=== PATIENT | male | born 1975 | race Caucasian/White ===

== ENCOUNTER 2017-09-19 14:58 | Emergency (ER) | payer OTHER, SELFPAY ==
[2017-09-19 15:09] VITALS: BP 123/78; PULSE 90; RESP 20; TEMP 37.1; O2SAT 95; BMI 33.3
[2017-09-19 15:21] LABS: UTC Influenza A Antigen Negative (Negative); UTC Influenza B Antigen Positive (Negative)
--- NOTE | 2017-09-19 15:23 | HMH.EDUTC ---
[facility] [place] Impression: Influenza Disposition: Home, Self-Care Condition on Discharge: Good Instructions: Influenza Additional Instructions: ? Start Tamiflu today if you are going to take it. Discussed risk and possible benefits. ? Lots of rest ? Increase Fluids water, Gatorade, powerade, pedialyte,if /toddler/child ? Alternate Tylenol and / or ibuprofen as discussed for fever, aches, chills x 24 hours without medication for symptoms ? Follow up IMMEDIATELY for new or worsening Symptoms OR no noticeable improvement over the next 48-72 hours, 911 for difficulty or breathing ? You or your child area contagious until no fever, aches, chills for 24 hours with medication for symptoms Prescriptions: Brompheniramine/Pseudoephed/Dm [Bromfed DM Cough Syrup 5mL] 10 ml PO Q4HP PRN #300 ml PRN Reason: Cough Oseltamivir Phosphate [Tamiflu 75mg Capsule] 75 mg PO BID #10 cap Referrals: Ankita Moore [Primary Care Provider] - Forms: Work/School Release Time of Disposition: 15:28 Medical Decision Making - Medical Records Medical records reviewed: Yes: I reviewed the patient's medical records. Vital Signs: 09/19/17 15:09 Temperature 98.8 F Temperature Source Temporal Artery Scan Pulse Rate [Right] 90 Respiratory Rate 20 Blood Pressure [Right Arm] 123/78 Blood Pressure Mean [Right Arm] 93 Blood Pressure Source [Right Arm] Automatic Cuff Blood Pressure Position [Right Arm] Sitting 02 Sat by Pulse Oximetry 95 Oxygen Delivery Method Room Air - Lab Data Lab Results 09/19/17 14:59: Influenza Type A Ag Negative, Influenza Type B Ag Positive A - Florentino Inquiry Pt receiving controlled substance: No Florentino was queried for this patient: No [facility] [place] - General Stated complaint: legs aching, fever Mode of Arrival: Ambulatory Source of Information: Spouse Limitations: No Limitations Description of Symptoms (Recalled from Triage Doc. by RN): FLU SYMPTOMS HEENT Symptoms (Recalled from RN notes): Yes Resp Symptoms (Recalled from RN notes): No Skin Symptoms (Recalled from RN notes): No MS Symptoms (Recalled from RN notes): No Functional Status (Recalled from RN notes): N - Related Data Previous Rx's Medication Instructions Recorded Brompheniramine/Pseudoephed/Dm 10 ml PO Q4HP PRN #300 ml 09/19/17 [Bromfed DM Cough Syrup 5mL] Oseltamivir Phosphate [Tamiflu 75 mg PO BID #10 cap 09/19/17 75mg Capsule] Allergies Allergy/AdvReac Type Severity Reaction Status Date / Time No Known Allergies Allergy Verified 09/19/17 15:13 - Worker's Comp Is this a Worker's Comp case?: No [facility] History - *Social History Smoking Status: Current every day smoker Tobacco Type: cigarettes Alcohol Intake: never - Psychiatric History Expresses thoughts of harming self/others: None Suicide Plan Description: No Plan ROS Obtained: Yes All systems reviewed & no additional complaints - Constitutional Constitutional: Reports body ache, Reports chills, Reports fever(s) - ENT Ears, Nose, Mouth, and Throat: Reports sore throat Physical Exam - General General appearance: alert, in no apparent distress - Expanded ENT Exam Comment: Throat red, irritated - Respiratory Respiratory exam: Present: normal lung sounds bilaterally. Absent: respiratory distress - Cardiovascular Cardiovascular exam: Present: regular rate, normal rhythm. Absent: JVD - Abdominal Exam Abdominal exam: Present: soft, normal bowel sounds. Absent: distention, tenderness, guarding - Neurological Exam Neurological exam: Present: alert, oriented X3
--- NOTE | 2017-09-19 15:28 | ED_ITS ---
[facility] [place] Clinical Impression: Influenza Disposition: Home, Self-Care Condition on Discharge: Good Instructions: Influenza Additional Instructions: ? Start Tamiflu today if you are going to take it. Discussed risk and possible benefits. ? Lots of rest ? Increase Fluids water, Gatorade, powerade, pedialyte,if /toddler/child ? Alternate Tylenol and / or ibuprofen as discussed for fever, aches, chills x 24 hours without medication for symptoms ? Follow up IMMEDIATELY for new or worsening Symptoms OR no noticeable improvement over the next 48-72 hours, 911 for difficulty or breathing ? You or your child area contagious until no fever, aches, chills for 24 hours with medication for symptoms Prescriptions: Brompheniramine/Pseudoephed/Dm [Bromfed DM Cough Syrup 5mL] 10 ml PO Q4HP PRN # 300 ml PRN Reason: Cough Oseltamivir Phosphate [Tamiflu 75mg Capsule] 75 mg PO BID #10 cap Referrals: Ankita Moore [Primary Care Provider] - Forms: Work/School Release Time of Disposition: 15:28 Medical Decision Making - Medical Records Medical records reviewed: Yes: I reviewed the patient's medical records. Vital Signs: 09/19/17 15:09 Temperature 98.8 F Temperature Source Temporal Artery Scan Pulse Rate [Right] 90 Respiratory Rate 20 Blood Pressure [Right Arm] 123/78 Blood Pressure Mean [Right Arm] 93 Blood Pressure Source [Right Arm] Automatic Cuff Blood Pressure Position [Right Arm] Sitting 02 Sat by Pulse Oximetry 95 Oxygen Delivery Method Room Air - Lab Data Lab Results 09/19/17 14:59: Influenza Type A Ag Negative, Influenza Type B Ag Positive A - Florentino Inquiry Pt receiving controlled substance: No Florentino was queried for this patient: No [facility] [place] HPI - General Stated complaint: legs aching, fever Mode of Arrival: Ambulatory Source of Information: Spouse Limitations: No Limitations Description of Symptoms (Recalled from Triage Doc. by RN): FLU SYMPTOMS HEENT Symptoms (Recalled from RN notes): Yes Resp Symptoms (Recalled from RN notes): No Skin Symptoms (Recalled from RN notes): No MS Symptoms (Recalled from RN notes): No Functional Status (Recalled from RN notes): N - Related Data Previous Rx's Medication Instructions Recorded Brompheniramine/Pseudoephed/Dm 10 ml PO Q4HP PRN #300 ml 09/19/17 [Bromfed DM Cough Syrup 5mL] Oseltamivir Phosphate [Tamiflu 75 mg PO BID #10 cap 09/19/17 75mg Capsule] Allergies Allergy/AdvReac Type Severity Reaction Status Date / Time No Known Allergies Allergy Verified 09/19/17 15:13 - Worker's Comp Is this a Worker's Comp case?: No [facility] History - *Social History Smoking Status: Current every day smoker Tobacco Type: cigarettes Alcohol Intake: never - Psychiatric History Expresses thoughts of harming self/others: None Suicide Plan Description: No Plan ROS Obtained: Yes All systems reviewed & no additional complaints - Constitutional Constitutional: Reports body ache, Reports chills, Reports fever(s) - ENT Ears, Nose, Mouth, and Throat: Reports sore throat Physical Exam - General General appearance: alert, in no apparent distress - Expanded ENT Exam Comment: Throat red, irritated - Respiratory Respiratory exam: Present: normal lung sounds bila
[2017-09-19 15:29] VITALS: BP 138/77; PULSE 89; RESP 20; TEMP 36.6; O2SAT 99
== END 2017-09-19 15:30 | disposition home or self-care (01) ==
PROVIDERS: Emergency Provider Nurse Practitioner; Family Provider Physician Assistant; PCP Physician Assistant
DX: J11.1 Influenza due to unidentified influenza virus with other respiratory manifestations (principal); F17.210 Nicotine dependence, cigarettes, uncomplicated
CPT/HCPCS: 87804; 99202

== ENCOUNTER 2020-03-18 12:26 | Emergency (ER) | payer OTHER, SELFPAY ==
[2020-03-18 12:28] VITALS: BP 135/75; PULSE 84; RESP 17; TEMP 37.2; O2SAT 97; BMI 34.9
--- NOTE | 2020-03-18 12:38 | CT_ITS ---
PROCEDURE: CT HEAD/BRAIN WO CON CLINICAL INDICATION: Intermittent left arm weakness for days COMPARISON: No exams were available for comparison TECHNIQUE: Axial images obtained. All CT scans at the facility use one or more dose reduction, viz: automated exposure control, ma/kV adjustment per patient size (including targeted exams where dose is matched to indication, i.e. head), or iterative reconstruction technique. FINDINGS: No midline shift, mass effect, intracranial hemorrhage, hydrocephalus, or extra-axial fluid collection is evident. The calvarium has an unremarkable appearance. No mastoid effusion. No sinus air-fluid level. IMPRESSION: No acute intracranial finding Dictated by: Sincere Hope MD 03/18/2020 13:01 Sincere Hope MD in [place] 03/18/2020 13:01
--- NOTE | 2020-03-18 12:40 | HMH.EDWEAK ---
ED Disposition Clinical Impression: Paresthesia, Lightheaded Disposition: Home, Self-Care Condition on Discharge: Good Instructions: DI for Transient Ischemic Attack, DI for Dehydration -- Adult Referrals: Sabine Magallon APRN [Primary Care Provider] - 3 days - Critical Care Critical Care Time: No Attestation: On 03/18/20, the high probability of a clinically significant, sudden or life threatening deterioration of the following system(s) required my full and direct attention, intervention and personal management. The time I documented below is in addition to time spent performing reported procedures but includes the following listed in this critical care notation. Medical Decision Making - Medical Records Medical records reviewed: Yes: I reviewed the patient's medical records. - Florentino Inquiry Pt receiving controlled substance: No Vital Signs: 03/18/20 12:28 03/18/20 13:19 Temperature 99 F Temperature Source Oral Pulse Rate [Right] 84 75 Respiratory Rate 17 Blood Pressure [Right Arm] 135/75 142/68 H Blood Pressure Mean [Right Arm] 95 92 Blood Pressure Source [Right Arm] Automatic Cuff Blood Pressure Position [Right Arm] Sitting 02 Sat by Pulse Oximetry 97 97 Oxygen Delivery Method Room Air - Lab Data Lab results reviewed: Yes: I reviewed the patient's lab results. Lab Results 03/18/20 12:55: WBC 4.9, RBC 4.68, Hgb 14.6, Hct 43.6, MCV 93.1, MCH 31.2, MCHC 33.5, RDW 12.8, Plt Count 249, MPV 7.6, Neut % (Auto) 61.7, Lymph % (Auto) 27.2, Fajardo % (Auto) 8.0, Eos % (Auto) 2.7, Baso % (Auto) 0.4, Neut # (Auto) 3.0, Lymph # (Auto) 1.3, Fajardo # (Auto) 0.4, Eos # (Auto) 0.1, Baso # (Auto) 0.0 03/18/20 12:55: Sodium 139, Potassium 4.3, Chloride 102, Carbon Dioxide 29, Anion Gap 12.3, BUN 19, Creatinine 1.10, Estimated Creat Clear 143, Estimated GFR 72, Est GFR ( Amer) 87, Glucose 103 H, Calcium 9.3, Troponin I < 0.01 03/18/20 12:55: Urine Color Yellow, Urine Appearance Clear, Urine pH 7.0, Ur Specific [place] 1.010, Urine Protein Negative, Urine Glucose (UA) Negative, Urine Ketones Negative, Urine Blood Negative, Urine Nitrate Negative, Urine Bilirubin Negative, Urine Urobilinogen 0.2, Ur Leukocyte Esterase Negative, Urine WBC Occasional, Urine Bacteria Trace 03/18/20 12:55: Urine Opiates Screen Negative, Urine Methadone Screen Negative, Ur Barbituates Screen Negative, Ur Phencyclidine Scrn Negative, Ur Amphetamines Screen Negative, U Benzodiazepines Scrn Negative, Urine Cocaine Screen Negative, U Marijuana (THC) Screen Negative Result diagrams: 03/18/20 12:55 03/18/20 12:55 Orders (Tests/Meds): ORDERS Category Date Time Status Troponin I Q3H Lab 03/18/20 15:45 Ordered Troponin I Q3H Lab 03/18/20 18:45 Ordered ECG Request by /Luisana Stat Y 03/18/20 12:38 Ordered - CT Data CT Scan: Head Time Received: 13:[address] Reviewed: Yes: I have reviewed the patient's CT results Preliminary Findings: Normal/NAD Medical Decision Narrative: Is asymptomatic here. CT head negative. Labs with no significant metabolic derangement, anemia. No UTI, drug screen negative. Troponin negative and EKG with no signs of acute ischemia. Patient describes more of a temporal nature of his symptoms at night and after further discussion he tells me that his blood pressure is between 1 30-1 50 systolic in the evenings and he is concerned that he may need blood pressure medicine at night. He also admits he is not drinking much water during the day and works outside all day, so dehydration could be a component of his lightheadedness, subsequently causing his subjective weakness. However, certainly TIA remains a concern as well. I have discussed all of this with both the patient and his primary care provider and both would prefer an outpatient work-up for this though I have offered admission. PCP will increase his dose of lisinopril to 10 mg twice daily instead of once daily. I have informed the patient of this. He will
--- NOTE | 2020-03-18 12:43 | ECG_ITS ---
APPROVED REPORT Exam: Resting ECG HR:77 bpm ECG Measurements Heart Rate 77 AXES ND 148 P 48 QRSd 92 QRS 47 QT 364 T 30 QTc 411 <Conclusion> Normal sinus rhythm Normal ECG Electronically signed by : Serg Fair, 03/20/2020 17:33:07
--- NOTE | 2020-03-18 12:55 | PC.NURSE ---
Pt to rad.
[2020-03-18 13:00] LABS: Appearance,Urine CLEAR (Clear); Bilirubin,Urine Negative (Negative); Blood, Urine Negative (Negative); Color,Urine YELLOW (Yellow); Glucose,Urine (UA) Negative (Negative); Ketones,Urine Negative (Negative); Leukocyte Esterase,Urine Negative (Negative); Microscopic, Urine URINE MICROSCOPIC (MICROSCOPIC); Nitrate,Urine Negative (Negative); Protein,Urine Negative (Negative); Urobilinogen,Urine 0.2 EU/dl (0.2)
[2020-03-18 13:05] LABS: Chloride 102 mmol/L (98-107); Potassium 4.3 mmoL/L (3.5-5.1); Sodium 139 mmol/L (136-145)
[2020-03-18 13:08] LABS: Anion Gap 12.3 mEq/L (5-15); Basophils % 0.4 % (0.1-2.0); Blood Urea Nitrogen 19 mg/dl (9-20); Calcium 9.3 mg/dl (8.4-10.2); Carbon Dioxide 29 mmol/L (22.0-30.0); Creatinine Clearance Estimated 143 mL/min (50-200); Eosinophils # 0.1 K/mm3 (0.0-0.4); Eosinophils % 2.7 % (0.1-12.0); Estimated Glomerular Filt Rate 72 ml/min (>60); GFR (African American) 87 ML/MIN (>60); Glucose 103 mg/dl (74-100); Hematocrit 43.6 % (42.0-52.0); Hemoglobin 14.6 g/dL (14.1-18.0); Lymphocytes # 1.3 K/mm3 (0.7-4.5); Lymphocytes % 27.2 % (10-50); Mean Corpuscular HGB Conc 33.5 g/dL (31.8-35.4); Mean Corpuscular Hemoglobin 31.2 pg (27.0-31.2); Mean Corpuscular Volume 93.1 fl (80-94); Mean Platelet Volume 7.6 fl (7.4-10.4); Monocytes # 0.4 K/mm3 (0.1-1.0); Neutrophils % 61.7 % (37.0-80.0); Platelet Count 249 K/mm3 (142-424); Red Blood Count 4.68 M/mm3 (4.60-6.20); Red Cell Distribution Width 12.8 % (11.5-17.5); White Blood Count 4.9 K/mm3 (4.8-10.8)
[2020-03-18 13:14] LABS: Amphetamine/Metha Screen,Urine Negative ng/ml (<1000); Bacteria,Urine Trace /lpf; Benzodiazepines Screen,Urine Negative ng/ml (<200); WBC,Urine Occasional #/hpf (0-3)
[2020-03-18 13:15] LABS: Barbiturates Screen,Urine Negative ng/ml (<200)
[2020-03-18 13:16] LABS: Cannabinoid Screen,Urine Negative ng/ml (<50); Cocaine Screen,Urine Negative ng/ml (<300)
[2020-03-18 13:17] LABS: Methadone Screen,Urine Negative ng/ml (<300)
[2020-03-18 13:18] LABS: Opiate Screen,Urine Negative ng/ml (<300); Phencyclidine Screen,Urine Negative ng/ml (<25)
[2020-03-18 13:19] VITALS: BP 142/68; PULSE 75; O2SAT 97
[2020-03-18 13:27] LABS: Troponin I < 0.01 ng/ml (0.00-0.034)
[2020-03-18 13:46] VITALS: BP 142/68; PULSE 75; RESP 17; TEMP 37.2; O2SAT 97
== END 2020-03-18 13:51 | disposition home or self-care (01) ==
PROVIDERS: Emergency Provider Emergency Medicine; PCP Nurse Practitioner Family
DX: R42 Dizziness and giddiness (principal); R20.2 Paresthesia of skin; I10 Essential (primary) hypertension; E78.5 Hyperlipidemia, unspecified; Z79.899 Other long term (current) drug therapy
CPT/HCPCS: 70450; 80048; 80305; 81001; 84484; 85025; 93005; 99284

== ENCOUNTER → 2020-03-22 17:00 | Outpatient (CLI) | payer OTHER, SELFPAY | PROVIDERS: PCP Nurse Practitioner Family; Visit Provider Specialist | DX: R55 Syncope and collapse (principal); G54.9 Nerve root and plexus disorder, unspecified; I10 Essential (primary) hypertension; E78.5 Hyperlipidemia, unspecified; R06.83 Snoring; G47.33 Obstructive sleep apnea (adult) (pediatric) | CPT/HCPCS: 93225; 93226; 95806 ==

== ENCOUNTER → 2020-03-26 10:43 | Outpatient (CLI) | payer OTHER, SELFPAY ==
--- NOTE | 2020-03-26 10:44 | MR_ITS ---
PROCEDURE: MR HEAD/BRAIN WO CON CLINICAL INDICATION: tia X2wks episode dizzy and lightheadedness. Prior ct 03-18-20 COMPARISON: CT CT HEAD/BRAIN WO CON from 03/18/2020 TECHNIQUE: Routine multiplanar multi echo sequences are performed without gadolinium enhancement. FINDINGS: No midline shift, mass effect, intracranial hemorrhage, or hydrocephalus. No evidence of acute infarction. The cerebellopontine angles, cerebellum, and brainstem have an unremarkable appearance. The pituitary, optic chiasm, corpus callosum, and craniocervical junction have an unremarkable appearance. Unremarkable white matter signal intensity. No mastoid effusion or sinus air-fluid level. IMPRESSION: Negative MRI of the brain without contrast, no acute finding. Dictated by: Sincere Hope MD 03/27/2020 12:35 Sincere Hope MD in [place] 03/27/2020 12:35
--- NOTE | 2020-03-26 11:49 | CA_ITS ---
APPROVED REPORT EXAM: Comprehensive 2D, Doppler, and color-flow Echocardiogram Compensator Worker: Tracee Fish RVT Ht: 6 ft 1 in Wt: 259lbs BSA: 2.40 BP: 123/69 mmHg Indications: TIA,NEAR SYNCOPE,HTN,HLD,EX SMOKER 2D Dimensions LVOT 2.51 cm (M/F) 1.5-2.5 M-Mode Dimensions RVDd 3.57 cm (0.9-2.6) LVDd 5.14 cm (3.5-5.7) LVDs 2.93 cm (3.5-5.7) IVSd 1.19 cm (0.6-1.1) PWd 0.76 cm (0.6-1.1) EF (Teich) 73.80% FS 43.00% EDV (Teich) 126.10 mL ESV (Teich) 33.00 mL LV Diastology E/A Ratio 1.21 Mitral Valve MV A Velocity 63.00 (40-130 cm/s) Left Ventricle Left atrium is mildly enlarged, left ventricle is normal size, there is mild concentric left ventricular hypertrophy, visually estimated ejection fraction 55% with no regional wall motion abnormality. Grade 1 diastolic dysfunction seen without tissue Doppler evidence of raise left atrial pressure. Right Ventricle Right atrium and right ventricle are mildly enlarged with normal contractility. Aortic Valve Aortic valve is minimally thickened and fibrosed, there is no aortic stenosis or aortic insufficiency. Mitral Valve Mitral valve is grossly normal, there is mild mitral regurgitation. Tricuspid Valve Tricuspid valve grossly normal, there is mild tricuspid regurgitation, tricuspid regurgitation jet velocity is inadequate for calculation of the right ventricular systolic pressure. Pulmonic Valve Pulmonic valve is poorly visualized. Great Vessels Aortic root is normal size. Pericardium No significant pericardial effusion noted. Conclusion 1. Mild biatrial enlargement, normal left ventricular size, mild concentric left ventricular hypertrophy, visually estimated ejection fraction 55% with no regional wall motion abnormality, grade 1 diastolic dysfunction seen without tissue Doppler evidence of raise left atrial pressure. 2. Mildly enlarged right ventricle with normal contractility. 3. Mild mitral and tricuspid regurgitation. 4. No significant pericardial effusion noted. Electronically signed by : Michael Cifuentes, 03/26/2020 21:03:59
--- NOTE | 2020-03-26 11:49 | CA_ITS ---
APPROVED REPORT Alterations Expert: Tracee Fish RVT Laterality: Bilateral Study Quality: Good Indications: TIA,NEAR SYNCOPE,HTN,HLD,EX SMOKER Risk Factors Hypertension: Hyperlipidemia Smoking Doppler Spectral Velocity Analysis ECA (R) 151.30/12.00 cm/s ECA (L) 123.60/18.00 cm/s dICA (R) 92.00/39.60 cm/s dICA (L) 64.40/25.50 cm/s Pricilla (R) 77.40/27.90 cm/s Pricilla (L) 66.70/26.20 cm/s pICA (R) 64.60/19.80 cm/s pICA (L) 67.20/18.10 cm/s dCCA (R) 105.30/18.90 cm/s dCCA (L) 80.10/18.90 cm/s pCCA (R) 112.50/15.50 cm/s pCCA (L) 114.60/18.00 cm/s Vert (R) 59.90/12.00 cm/s Vert (L) 49.40/12.70 cm/s ICA/CCA 0.87 ICA/CCA 0.84 Findings Study suggests no evidence of stenosis in the right internal cartoid artery. Study suggests less than 20% stenosis of the left internal cartoid artery. Antegrade flow seen bilateral vertebral arteries. Conclusion Study suggests no evidence of stenosis in the right internal cartoid artery. Study suggests less than 20% stenosis of the left internal cartoid artery. Antegrade flow seen bilateral vertebral arteries. Electronically signed by : Sincere Hope MD 03/26/2020 18:04:46
== END ==
PROVIDERS: PCP Nurse Practitioner Family; Visit Provider Specialist
DX: R55 Syncope and collapse (principal); G45.9 Transient cerebral ischemic attack, unspecified; R20.0 Anesthesia of skin; I10 Essential (primary) hypertension; R06.83 Snoring; E78.5 Hyperlipidemia, unspecified
CPT/HCPCS: 70551; 93306; 93880

== ENCOUNTER 2020-06-03 12:43 | Emergency (ER) | payer OTHER, SELFPAY ==
[2020-06-03 12:50] VITALS: BP 143/77; PULSE 98; RESP 16; TEMP 37.4; O2SAT 96; BMI 34.2
--- NOTE | 2020-06-03 13:18 | HMH.EDUTC ---
[facility] [place] Dis[place] Clinical Impression: Piriformis syndrome of left side Disposition: Home, Self-Care Condition on Discharge: Good Instructions: DI for Back Pain With Sciatica Additional Instructions: Rest the extremity, Take the steroids that if prescribed. Don't start them until tomorrow since you had the shot here. Follow up with Dr. Honr (orthopedics) if you continue to have these symptoms after 48 to 72 hours after starting the medications. I put in a referral but you need to call her office and schedule an appointment. Follow up with your regular doctor. GO TO THE ER FOR ANY WORSENING SYMPTOMS Prescriptions: methylPREDNISolone [Medrol] 4 mg PO DIRECTED 6 Days #21 tab.ds.pk Transmission Status: Received by [facility] Referrals: Sabine Magallon APRN [Primary Care Provider] - Lonnie Horn MD [Staff Physician] - Forms: Work/School Release Time of Disposition: 13:22 Medical Decision Making - Medical Records Medical records reviewed: No: I reviewed the patient's medical records. - Florentino Inquiry Pt receiving controlled substance: No Vital Signs: 06/03/20 12:50 06/03/20 13:28 Temperature 99.4 F 99.4 F Temperature Source Oral Pulse Rate 98 H Pulse Rate [Right Brachial] 98 H Respiratory Rate 16 16 Blood Pressure 143/77 H Blood Pressure [Right Arm] 143/77 H Blood Pressure Mean [Right Arm] 99 Blood Pressure Source [Right Arm] Automatic Cuff Blood Pressure Position [Right Arm] Sitting 02 Sat by Pulse Oximetry 96 Oxygen Delivery Method Room Air Orders (Tests/Meds): ED MEDICATIONS Discontinued Medications Generic Name Dose Route Start Last Admin Trade Name Mary PRN Reason Stop Dose Admin Methylprednisolone Sodium Succinate 125 mg 06/03/20 13:17 06/03/20 13:27 Methylprednisolone Sod Succ 125mg Vial IM 06/03/20 13:18 125 mg ONCE ONE Administration [facility] [place] HPI - General Stated complaint: numbness in left leg Time Seen by Provider: 06/03/20 12:55 Mode of Arrival: Ambulatory Source of Information: Patient Limitations: No Limitations Description of Symptoms (Recalled from Triage Doc. by RN): PATIENT C/O CONSTANT NUMBNESS TO LEFT THIGH AND PAIN THAT RADIATES FROM LEFT HIP THROUGH MID THIGH X 2 WEEKS HEENT Symptoms (Recalled from RN notes): No Resp Symptoms (Recalled from RN notes): No Skin Symptoms (Recalled from RN notes): No MS Symptoms (Recalled from RN notes): Yes Functional Status (Recalled from RN notes): WNL - History of Present Illness Provider Complaint: He states that for the past week or so he has pain that radiated down from his left hip to just above his knee. Over the past 2 days he has developed a numb and tingling area on his left leg at the lateral area just above his knee. He denies any injury. He does have a history of low back pain. - Related Data Home Medications Medication Instructions Recorded Confirmed Atorvastatin Calcium [Atorvastatin 10 mg PO DAILY 10/08/18 06/03/20 10mg Tab] Fenofibrate [Tricor 54mg tablet] 54 mg PO DAILY 10/08/18 06/03/20 Levothyroxine Sodium 50 mcg PO DAILY 10/08/18 06/03/20 [Levothyroxine 50mcg (0.05mg) Tab] lisinopril 10 mg tablet 10 mg PO BID tab 03/19/20 06/03/20 aspirin 81 mg tablet,delayed 81 mg PO DAILY 05/22/20 06/03/20 release mecobalamin (vitamin B12) 1,000 1,000 mcg PO DAILY 05/22/20 06/03/20 mcg chewable tablet Previous Rx's Medication Instructions Recorded methylPREDNISolone [Medrol] 4 mg PO DIRECTED 6 Days #21 06/03/20 tab.ds.pk Allergies Allergy/AdvReac Type Severity Reaction Status Date / Time No Known Allergies Allergy Verified 05/22/20 15:56 - Worker's Comp Is this a Worker's Comp case?: No [facility] History - Hepatitis A Screen Drug use history?: No High risk sexual behaviors?: No History of sexually transmitted infection?: No Currently employed?: No Childcare worker?: No Do you have indoor plumbing?: Yes Do you have electricity
[2020-06-03 13:28] VITALS: BP 143/77; PULSE 98; RESP 16; TEMP 37.4; O2SAT 96
== END 2020-06-03 13:42 | disposition home or self-care (01) ==
PROVIDERS: Emergency Provider Nurse Practitioner Family; PCP Nurse Practitioner Family
DX: G57.02 Lesion of sciatic nerve, left lower limb (principal); I10 Essential (primary) hypertension; E78.5 Hyperlipidemia, unspecified; E03.9 Hypothyroidism, unspecified; Z79.899 Other long term (current) drug therapy
CPT/HCPCS: 96372; 99201

== ENCOUNTER 2021-01-14 01:40 | Emergency (ER) | payer OTHER, SELFPAY ==
--- NOTE | 2021-01-14 01:46 | ECG_ITS ---
APPROVED REPORT Exam: Resting ECG HR:76 bpm ECG Measurements Heart Rate 76 AXES OK 154 P 55 QRSd 98 QRS 65 QT 378 T 40 QTc 425 Conclusion Normal sinus rhythm Normal ECG Electronically signed by : Serg Fair, 01/14/2021 08:16:54
[2021-01-14 01:49] VITALS: BP 134/78; PULSE 80; RESP 16; TEMP 36.9; O2SAT 99; BMI 35.3
--- NOTE | 2021-01-14 02:07 | XR_ITS ---
PROCEDURE INFORMATION: Exam: XR Chest Exam date and time: 01/14/2021 2:07 AM Age: 45 years old Clinical indication: Pain; Left-sided; Patient HX: Woke up to his arm tingling, feeling has mostly went away. ; Additional info: Left arm numbness TECHNIQUE: Imaging protocol: XR of the chest. Views: 2 views. COMPARISON: CR CXR2V XR chest 2V 10/08/2018 11:12 PM FINDINGS: Tubes, catheters and devices: Multiple overlying cardiac leads are present. Lungs: Unremarkable. No consolidation. Pleural spaces: Unremarkable. No pleural effusion. No pneumothorax. Heart/Mediastinum: Unremarkable. No cardiomegaly. Bones/joints: Unremarkable. IMPRESSION: No acute findings.
--- NOTE | 2021-01-14 02:07 | XR_ITS ---
PROCEDURE INFORMATION: Exam: XR Left Shoulder Exam date and time: 01/14/2021 2:07 AM Age: 45 years old Clinical indication: Numbness; Arm, upper; Left; Patient HX: Woke up to his arm tingling, feeling has mostly went away. ; Additional info: Left arm numbness TECHNIQUE: Imaging protocol: XR Left shoulder. Views: 2 or more views. COMPARISON: No relevant prior studies available. FINDINGS: Bones/joints: Normal. Soft tissues: Normal. IMPRESSION: No acute findings.
[2021-01-14 02:17] LABS: Basophils % 0.8 % (0.1-2.0); Eosinophils # 0.2 K/mm3 (0.0-0.4); Eosinophils % 2.9 % (0.1-12.0); Hematocrit 43.7 % (42.0-52.0); Hemoglobin 14.5 g/dL (14.1-18.0); Lymphocytes # 1.7 K/mm3 (0.7-4.5); Lymphocytes % 31.3 % (10-50); Mean Corpuscular HGB Conc 33.1 g/dL (31.8-35.4); Mean Corpuscular Hemoglobin 29.5 pg (27.0-31.2); Mean Corpuscular Volume 89.2 fl (80-94); Mean Platelet Volume 7.3 fl (7.4-10.4); Monocytes # 0.5 K/mm3 (0.1-1.0); Monocytes % 8.7 % (1.7-9.3); Neutrophils # 3.1 K/mm3 (1.8-7.8); Neutrophils % 56.4 % (37.0-80.0); Platelet Count 251 K/mm3 (142-424); White Blood Count 5.6 K/mm3 (4.8-10.8)
[2021-01-14 02:20] LABS: Alanine Aminotransferase 46 U/L (12-78); Albumin Level 4.9 g/dl (3.5-5.0); Alkaline Phosphatase 50 U/L (38-126); Aspartate Amino Transferase 39 U/L (17-59); Bilirubin,Total 0.6 mg/dl (0.2-1.3); Blood Urea Nitrogen 18 mg/dl (9-20); Calcium 9.2 mg/dl (8.4-10.2); Carbon Dioxide 28 mmol/L (22.0-30.0); Chloride 103 mmol/L (98-107); Creatinine Clearance Estimated 121 mL/min (50-200); Estimated Glomerular Filt Rate 59 ml/min (>60); GFR (African American) 72 ML/MIN (>60); Globulin 2.5 g/dL (1.3-3.2); Glucose 108 mg/dl (74-100); Sodium 138 mmol/L (136-145); Total Protein,Serum 7.4 g/dl (6.3-8.2)
[2021-01-14 02:25] LABS: C-Reactive Protein 1.2 mg/L (0-4)
[2021-01-14 02:30] VITALS: BP 116/72; PULSE 80; O2SAT 98
[2021-01-14 02:39] LABS: Procalcitonin 0.053 ng/mL (0.0-2.0); Troponin I < 0.01 ng/ml (0.00-0.034)
[2021-01-14 02:48] LABS: Erythrocyte Sedimentation Rate 7 mm/hr (0-15)
[2021-01-14 03:00] VITALS: BP 140/69; PULSE 76; RESP 18; O2SAT 98
--- NOTE | 2021-01-14 03:37 | HMH.EDUPEXT ---
ED Disposition Clinical Impression: Left upper arm pain Disposition: Home, Self-Care Condition on Discharge: Good Instructions: DI for Acute Pain -- Adult Additional Instructions: see pcp for follow up Referrals: Sabine Magallon APRN [Primary Care Provider] - - Critical Care Critical Care Time: No Attestation: On 01/14/21, the high probability of a clinically significant, sudden or life threatening deterioration of the following system(s) required my full and direct attention, intervention and personal management. The time I documented below is in addition to time spent performing reported procedures but includes the following listed in this critical care notation. Medical Decision Making - Medical Records Medical records reviewed: Yes: I reviewed the patient's medical records. - Florentino Inquiry Pt receiving controlled substance: No Vital Signs: 01/14/21 01:49 Temperature 98.4 F Temperature Source Oral Pulse Rate [Left Radial] 80 Respiratory Rate 16 Blood Pressure [Right Arm] 134/78 Blood Pressure Mean [Right Arm] 96 Blood Pressure Source [Right Arm] Automatic Cuff Blood Pressure Position [Right Arm] Sitting 02 Sat by Pulse Oximetry 99 Oxygen Delivery Method Room Air - Lab Data Lab results reviewed: Yes: I reviewed the patient's lab results. Lab Results 01/14/21 01:56: WBC 5.6, RBC 4.90, Hgb 14.5, Hct 43.7, MCV 89.2, MCH 29.5, MCHC 33.1, RDW 13.0, Plt Count 251, MPV 7.3 L, Neut % (Auto) 56.4, Lymph % (Auto) 31.3, [place] % (Auto) 8.7, Eos % (Auto) 2.9, Baso % (Auto) 0.8, Neut # (Auto) 3.1, Lymph # (Auto) 1.7, [place] # (Auto) 0.5, Eos # (Auto) 0.2, Baso # (Auto) 0.0, ESR 7 01/14/21 01:56: Sodium 138, Potassium 4.0, Chloride 103, Carbon Dioxide 28, Anion Gap 11.0, BUN 18, Creatinine 1.30 H, Estimated Creat Clear 121, Estimated GFR 59, Est GFR ( Amer) 72, Glucose 108 H, Calcium 9.2, Total Bilirubin 0.6, AST 39, ALT 46, Alkaline Phosphatase 50, Troponin I < 0.01, C-Reactive Protein 1.2, Total Protein 7.4, Albumin 4.9, Globulin 2.5, Albumin/Globulin Ratio 2.0 H, Procalcitonin 0.053 01/14/21 03:56: Troponin I < 0.01 Result diagrams: 01/14/21 01:56 01/14/21 01:56 Orders (Tests/Meds): ED MEDICATIONS Generic Name Dose Route Start Last Admin Trade Name Freq PRN Reason Stop Dose Admin Sodium Chloride 1,000 mls @ 999 mls/hr 01/14/21 02:15 01/14/21 02:13 Sod Chlor 0.9% 1000ml Bag IV 01/14/21 03:15 999 mls/hr .Q1H1M JULITO Administration Discontinued Medications Generic Name Dose Route Start Last Admin Trade Name Freq PRN Reason Stop Dose Admin Ketorolac Tromethamine 30 mg 01/14/21 02:07 01/14/21 02:13 Ketorolac 30mg/Ml Vial IV 01/14/21 02:08 30 mg ONCE ONE Administration Methylprednisolone Sodium Succinate 125 mg 01/14/21 02:07 01/14/21 02:13 Methylprednisolone Sod Succ 125mg Vial IV 01/14/21 02:08 125 mg ONCE ONE Administration ORDERS Category Date Time Status Troponin I Q3H Lab 01/14/21 08:15 Ordered - Radiology Data #1 Image(s): Chest, Shoulder Image Reviewed: Yes I reviewed the patient's radiology image Preliminary Findings: Normal/NAD - ECG Data Tracing #1 Normal Sinus Rhythm: Yes Ischemic changes: non-specific ST-T wave changes Medical Decision Narrative: pt with no acute changes with labs and pt improved but may represent atypical angina Upper Extremity HPI - General Chief Complaint: Extremity Problem,Nontraumatic Stated Complaint: left arm feels numb Time Seen by Provider: 01/14/21 02:00 Mode of Arrival: Ambulatory Source of Information: Patient, Spouse, Medical Record Limitations: No Limitations Description of Symptoms (Recalled from ER Triage Doc. by RN): Pt staes he was laying in bed tonight and his left arm fell asleep, symptoms have mostly resolved by time of arrival, but pt wants to be checked out. Pt has normal Cap refill and palpable radial pulses. - History of Present Illness HPI narrative: lt shoulde
[2021-01-14 04:00] VITALS: BP 122/66; PULSE 74; O2SAT 100
[2021-01-14 04:26] LABS: Troponin I < 0.01 ng/ml (0.00-0.034)
[2021-01-14 04:48] VITALS: BP 140/76; PULSE 78; RESP 16; TEMP 36.7; O2SAT 96
== END 2021-01-14 04:52 | disposition home or self-care (01) ==
PROVIDERS: Emergency Provider Emergency Medicine; PCP Nurse Practitioner Family
DX: M79.622 Pain in left upper arm (principal); R20.2 Paresthesia of skin; E78.5 Hyperlipidemia, unspecified; I10 Essential (primary) hypertension
CPT/HCPCS: 71046; 73030; 80053; 84145; 84484; 85025; 85651; 86140; 93005; 96365; 96375; 99283

== ENCOUNTER 2021-03-30 09:14 | Emergency (ER) | payer OTHER, SELFPAY ==
[2021-03-30 09:41] VITALS: BP 114/69; PULSE 70; RESP 12; TEMP 36.8; O2SAT 97; BMI 31.4
--- NOTE | 2021-03-30 10:00 | HMH.EDUTC ---
[facility] [place] Disposition Clinical Impression: Exposure to COVID-19 virus Disposition: Home, Self-Care Condition on Discharge: Good Instructions: Preventing the Spread of Coronavirus Discharge Instructions Additional Instructions: You have been tested for COVID19. Please isolate yourself as if you are positive until test results received. Referrals: Sabine Magallon APRN [Primary Care Provider] - Time of Disposition: 10:07 Medical Decision Making - Florentino Inquiry Pt receiving controlled substance: No Vital Signs: 03/30/21 09:41 Temperature 98.3 F Temperature Source Oral Pulse Rate [Left] 70 Respiratory Rate 12 Blood Pressure [Right Arm] 114/69 Blood Pressure Mean [Right Arm] 84 02 Sat by Pulse Oximetry 97 Orders (Tests/Meds): ORDERS Category Date Time Status Covid-19 Nasal PCR ([facility]) Routine Lab 03/30/21 09:49 Ordered [facility] [place] HPI - General Stated complaint: covid test/symptoms Time Seen by Provider: 03/30/21 10:00 Mode of Arrival: Ambulatory Source of Information: Patient Limitations: No Limitations Description of Symptoms (Recalled from Triage Doc. by RN): runny nose and cough. HEENT Symptoms (Recalled from RN notes): Yes (runny nose) Resp Symptoms (Recalled from RN notes): Yes (cough) Skin Symptoms (Recalled from RN notes): No MS Symptoms (Recalled from RN notes): No Functional Status (Recalled from RN notes): na - History of Present Illness Provider Complaint: Runny nose and cough X 2-3 days. No fever. No body aches or chills. No nausea, vomiting, diarrhea. His in-laws have COVID19. Onset (ago): day(s) (3) Relieving factors: none Exacerbating factors: none Associated symptoms: denies other symptoms Treatments prior to arrival: none - Related Data Home Medications Medication Instructions Recorded Confirmed Atorvastatin Calcium [Atorvastatin 10 mg PO DAILY 10/08/18 09/23/20 10mg Tab] Fenofibrate [Tricor 54mg tablet] 54 mg PO DAILY 10/08/18 09/23/20 Levothyroxine Sodium 50 mcg PO DAILY 10/08/18 09/23/20 [Levothyroxine 50mcg (0.05mg) Tab] lisinopril 10 mg tablet 10 mg PO BID tab 03/19/20 09/23/20 aspirin 81 mg tablet,delayed 81 mg PO DAILY 05/22/20 09/23/20 release mecobalamin (vitamin B12) 1,000 1,000 mcg PO DAILY 05/22/20 09/23/20 mcg chewable tablet Allergies Allergy/AdvReac Type Severity Reaction Status Date / Time No Known Allergies Allergy Verified 09/23/20 16:20 - Worker's Comp Is this a Worker's Comp case?: No [facility] History - Hepatitis A Screen Drug use history?: No High risk sexual behaviors?: No History of sexually transmitted infection?: No Currently employed?: No Childcare worker?: No Do you have indoor plumbing?: Yes Do you have electricity?: Yes Attestation statement:: This patient has been screened for Hepatitis A risk factors. I have reviewed the patient's past medical history: Yes Medical History: Reports:: Hyperlipidemia, Hypertension Denies:: Diabetes Mellitus Type 1, Diabetes Mellitus Type 2 Other Medical History: Reports: Thyroid Disease Laterality Cases: Bilateral: Carpal Tunnel Release Other Surgeries: Yes: No Previous Surgery Amputation: No Fractures: No - Social History Smoking Status: Never smoker Alcohol Intake: never Alcohol Intake Frequency:: holidays/special occasions only Substance Use Type: denies use Occupational Status: employed Housing: house Household Members: family Family Hx:: Cancer ROS Obtained: Yes All systems reviewed & no additional complaints - Constitutional Constitutional: Denies body ache, Denies chills, Denies fever(s), Reports malaise - ENT Ears, Nose, Mouth, and Throat: Reports nasal congestion - Respiratory Respiratory: Reports cough Physical Exam - General General appearance: alert, in no apparent distress - Head Head exam: normocephalic - Eye Eye exam: Present: PERRL - ENT ENT exam: Present: normal oropharynx, TM's normal bilaterally - Chest Chest inspection: Pre
[2021-03-30 10:11] VITALS: BP 114/69; PULSE 70; RESP 18; TEMP 36.8
--- NOTE | 2021-03-30 20:30 | PC.NURSE ---
just informed patient he is positive
== END 2021-03-30 10:27 | disposition home or self-care (01) ==
PROVIDERS: Emergency Provider Physician Assistant; PCP Nurse Practitioner Family
DX: U07.1 COVID-19 (principal); I10 Essential (primary) hypertension; E78.5 Hyperlipidemia, unspecified
CPT/HCPCS: 99202; G0463; U0003

== ENCOUNTER → 2022-10-14 09:25 | Outpatient (CLI) | payer OTHER, SELFPAY ==
--- NOTE | 2022-10-14 09:28 | XR_ITS ---
FINAL REPORT CLINICAL HISTORY: Persistent cough following COVID x 2, patient states that he has soa on exertion FINDINGS: Two views of the chest were obtained. The heart size and pulmonary vascularity are within normal limits. The mediastinum is normal. No acute pulmonary abnormality is identified. There is no pneumothorax. The bony thorax is intact. IMPRESSION: No active cardiopulmonary disease. Reviewed, Interpreted and Dictated by Reid Cruz III, MD Transcribed by Yarelis Lares Authenticated and [facility]
== END ==
PROVIDERS: PCP Family Medicine; Visit Provider Specialist
DX: R06.00 Dyspnea, unspecified (principal); R05.3 Chronic cough
CPT/HCPCS: 71046

== ENCOUNTER → 2022-10-19 14:39 | Outpatient (CLI) | payer OTHER, SELFPAY ==
[2022-10-19 15:35] VITALS: PULSE 86; PULSE 91
== END ==
PROVIDERS: PCP Family Medicine; Visit Provider Specialist
DX: R06.00 Dyspnea, unspecified (principal); R05.3 Chronic cough; G47.33 Obstructive sleep apnea (adult) (pediatric)
CPT/HCPCS: 94060; 94618; 94640; 94727; 94729

== ENCOUNTER → 2023-01-06 12:01 | Outpatient (CLI) | payer OTHER, SELFPAY ==
--- NOTE | 2023-01-06 12:06 | XR_ITS ---
FINAL REPORT CLINICAL HISTORY: low right side back pain FINDINGS: RIGHT HIP Two views of the right hip demonstrate no acute fracture or dislocation. The joint spaces appear normal. The visualized bony structures are well aligned. No soft tissue abnormality is seen. IMPRESSION: No acute bony abnormality. Reviewed, Interpreted and Dictated by Yobany Roberto MD Transcribed by Isabel Renner Authenticated and [facility]
--- NOTE | 2023-01-06 12:06 | XR_ITS ---
FINAL REPORT CLINICAL HISTORY: low right side back pain FINDINGS: No fracture is identified. Disc spaces are well-preserved. Mild dextroscoliosis is present. No acute bony abnormality is identified. IMPRESSION: Mild dextroscoliosis, otherwise unremarkable lumbar spine. Reviewed, Interpreted and Dictated by Yobany Roberto MD Transcribed by Isabel Renner Authenticated and [facility]
== END ==
PROVIDERS: PCP Family Medicine; Visit Provider Family Medicine
DX: M54.50 Low back pain, unspecified (principal); M25.551 Pain in right hip
CPT/HCPCS: 72100; 73502

== ENCOUNTER → 2023-03-23 16:51 | Outpatient (CLI) | payer OTHER, SELFPAY ==
[2023-03-23 16:39] LABS: Alanine Aminotransferase 45 U/L (12-78); Albumin Level 4.6 g/dl (3.5-5.0); Albumin/Globulin Ratio 1.9 (1.1-1.8); Alkaline Phosphatase 48 U/L (38-126); Anion Gap 13.4 mEq/L (5-15); Aspartate Amino Transferase 47 U/L (17-59); Bilirubin,Total 0.8 mg/dl (0.2-1.3); Blood Urea Nitrogen 21 mg/dl (9-20); Calcium 8.7 mg/dl (8.4-10.2); Carbon Dioxide 27 mmol/L (22.0-30.0); Chloride 103 mmol/L (98-107); Chol/HDL Ratio 4.9 (1-3.5); Cholesterol 156 mg/dl (140-200); Estimated Glomerular Filt Rate 64 ml/min (>60); GFR (African American) 78 ML/MIN (>60); Globulin 2.4 g/dL (1.3-3.2); Glucose 101 mg/dl (74-100); HDL Cholesterol 32 mg/dl (40-60); Potassium 4.4 mmoL/L (3.5-5.1); Sodium 139 mmol/L (136-145); Triglycerides 79 mg/dl (30-150); VLDL Cholesterol 16 mg/dL (0-40)
[2023-03-23 16:41] LABS: Hemoglobin A1C 5.6 % (4.0-6.0)
[2023-03-23 16:50] LABS: Direct LDL Cholesterol 102.74 mg/dL (100-129)
[2023-03-23 17:09] LABS: Thyroid Stimulating Hormone 1.61 uIU/mL (0.465-4.68)
== END ==
PROVIDERS: PCP Family Medicine; Visit Provider Family Medicine
DX: Z00.00 Encounter for general adult medical examination without abnormal findings (principal); E03.9 Hypothyroidism, unspecified; I10 Essential (primary) hypertension; E78.5 Hyperlipidemia, unspecified
CPT/HCPCS: 80053; 80061; 83036; 84443

== ENCOUNTER 2023-09-27 16:31 | Outpatient (CLI) | payer OTHER, SELFPAY ==
[2023-09-27 16:51] LABS: Basophils % 0.4 % (0.1-2.0); Eosinophils # 0.2 K/mm3 (0.0-0.4); Hematocrit 49.1 % (42.0-52.0); Hemoglobin 15.7 g/dL (14.1-18.0); Lymphocytes # 1.7 K/mm3 (0.7-4.5); Lymphocytes % 33.4 % (10-50); Mean Corpuscular HGB Conc 32.1 g/dL (31.8-35.4); Mean Corpuscular Hemoglobin 30.8 pg (27.0-31.2); Mean Platelet Volume 8.5 fl (7.4-10.4); Monocytes # 0.5 K/mm3 (0.1-1.0); Neutrophils # 2.7 K/mm3 (1.8-7.8); Neutrophils % 54.2 % (37.0-80.0); Platelet Count 224 K/mm3 (142-424); Red Blood Count 5.11 M/mm3 (4.60-6.20); Red Cell Distribution Width 13.5 % (11.5-17.5)
[2023-09-27 17:02] LABS: Alanine Aminotransferase 41 U/L (12-78); Albumin Level 4.5 g/dl (3.5-5.0); Alkaline Phosphatase 59 U/L (38-126); Anion Gap 10.5 mEq/L (5-15); Aspartate Amino Transferase 41 U/L (17-59); Bilirubin,Total 0.9 mg/dl (0.2-1.3); Blood Urea Nitrogen 23 mg/dl (9-20); Carbon Dioxide 30 mmol/L (22.0-30.0); Chloride 104 mmol/L (98-107); Chol/HDL Ratio 5.4 (1-3.5); Cholesterol 158 mg/dl (140-200); Estimated Glomerular Filt Rate 79 ml/min (>60); GFR (African American) 96 ML/MIN (>60); Globulin 2.2 g/dL (1.3-3.2); Glucose 99 mg/dl (74-100); HDL Cholesterol 29 mg/dl (40-60); Potassium 4.5 mmoL/L (3.5-5.1); Sodium 140 mmol/L (136-145); Total Protein,Serum 6.7 g/dl (6.3-8.2); Triglycerides 96 mg/dl (30-150); VLDL Cholesterol 19 mg/dL (0-40)
[2023-09-27 17:14] LABS: Direct LDL Cholesterol 99.13 mg/dL (100-129)
[2023-09-27 17:32] LABS: Thyroid Stimulating Hormone 2.19 uIU/mL (0.465-4.68)
[2023-09-27 17:52] LABS: Vitamin B12 717 pg/mL (239-931)
== END 2023-09-27 23:59 ==
LOC: LAB.DROPOF 16:31
PROVIDERS: PCP Nurse Practitioner Family; Visit Provider Nurse Practitioner Family
DX: E03.8 Other specified hypothyroidism (principal); I10 Essential (primary) hypertension; Z79.899 Other long term (current) drug therapy
CPT/HCPCS: 80053; 80061; 82607; 84443; 85025

== ENCOUNTER 2024-03-02 08:25 | Outpatient (POV) | payer OTHER, SELFPAY | END 2024-03-02 23:59 | disposition home or self-care (01) | LOC: SC 08:25 | PROVIDERS: Visit Provider Specialist/Technologist | DX: Z00.00 Encounter for general adult medical examination without abnormal findings (principal) ==

== ENCOUNTER 2025-04-19 09:22 | Outpatient (CLI) | payer OTHER, SELFPAY ==
[2025-04-19 19:56] LABS: Hematocrit 44.8 % (42.0-52.0); Hemoglobin 14.6 g/dL (14.1-18.0); Immature Granulocytes % 0.2 %; Mean Corpuscular HGB Conc 32.6 g/dL (31.8-35.4); Mean Corpuscular Hemoglobin 30.3 pg (27.0-31.2); Mean Corpuscular Volume 92.9 fl (80-94); Nucleated Red Blood Cells % 0 %; Platelet Count 228 K/mm3 (142-424); Red Blood Count 4.82 M/mm3 (4.60-6.20); Red Cell Distribution Width-SD 43.2 fL; White Blood Count 4.4 K/mm3 (4.8-10.8)
[2025-04-19 20:45] LABS: Alanine Aminotransferase 66 U/L (12-78); Albumin Level 4.6 g/dl (3.5-5.0); Albumin/Globulin Ratio 1.9 (1.1-1.8); Alkaline Phosphatase 52 U/L (38-126); Anion Gap 14.9 mEq/L (5-15); Aspartate Amino Transferase 54 U/L (17-59); Bilirubin,Total 0.8 mg/dl (0.2-1.3); Blood Urea Nitrogen 21 mg/dl (9-20); Calcium 8.8 mg/dl (8.4-10.2); Carbon Dioxide 26 mmol/L (22.0-30.0); Chloride 101 mmol/L (98-107); Cholesterol 141 mg/dl (140-200); Creatinine,Serum 0.90 mg/dl (0.66-1.25); Estimated Glomerular Filt Rate 89 ml/min (>60); GFR (African American) 108 ML/MIN (>60); Globulin 2.4 g/dL (1.3-3.2); Glucose 64 mg/dl (74-100); HDL Cholesterol 29 mg/dl (40-60); Potassium 3.9 mmoL/L (3.5-5.1); Sodium 138 mmol/L (136-145); Total Protein,Serum 7.0 g/dl (6.3-8.2); Triglycerides 161 mg/dl (30-150)
[2025-04-19 21:16] LABS: Thyroid Stimulating Hormone 1.17 uIU/mL (0.465-4.68)
[2025-04-19 21:44] LABS: Hepatitis C Ab Qual. W/ RFX NEGATIVE (Negative)
--- OUTSIDE RECORDS SUMMARY | 2025-04-20 11:33 | XMS_ITS | Encounter Summary ---
Author Organization Healthcare Address [address] [place] [address] Care Team Providers Care Flat Sheet Maker Name Role Phone Unavailable Primary Care Provider Unavailabl e Encounter Details Date Type Department Care Team (Late st Contact Info) Description 10/23/2022 Community Orders Community [facility] [address] [place] [address] Naomi Meza MD [address] [facility] [address] [place] [address] Obstructive sleep apnea (adult) (pediatric) (Primary Dx) Social History Tobacco Use Types Packs/Day Years Used Date Smoking Tobacco: Never Assessed Sex and Gender Information Value Date Recorded Sex Assigned at Not on file Legal Sex Male 9:35 AM EDT Gender Identity Not on file Sexual Orientation Not on file documented as of this encounter Plan of Treatment Not on file documented as of this encounter Visit Diagnoses Diagnosis Obstructive sleep apnea (adult) (pediatric)- Primary documented in this encounter
--- OUTSIDE RECORDS SUMMARY | 2025-04-20 11:33 | XMS_ITS | Clinical Summary ---
Author Organization Healthcare Address [address] [place] [address] Care Team Providers Care Shop Assistant Name Role Phone Unavailable Primary Care Provider Unavailabl e Social History Tobacco Use Types Packs/Day Years Used Date Smoking Tobacco: Never Assessed Sex and Gender Information Value Date Recorded Sex Assigned at Not on file Legal Sex Male 9:35 AM EDT Gender Identity Not on file Sexual Orientation Not on file Plan of Treatment Health Maintenance Due Date Last Done Comments [facility]-Depression Screening 1973 [facility]-/Child/Adol SDOH Screenings 1973 [facility]- SDOH Screenings 1991 [facility]-Adult SDOH Screenings 1991 [facility]-DTaP,Tdap,and Td Vaccine s (1 - Tdap) 1992 [facility]-Hepatitis B Vaccines (1 of 3 - 19+ 3-dose series) 1992 CT Colonography 2018 Colonoscopy 2018 FIT-DNA 2018 FIT 2018 FOBT 2018 Sigmoidoscopy 2018 [facility]-Colorectal Cancer Screening 2018 [facility]-Pneumococcal Vaccine: 50 + Years (1 of 1 - PCV) 2023 [facility]-Zoster Vaccines (1 of 2) 2023 [id number] Vaccine (3 - 2024- season) 2025 05/08/2021, 04/17/2021 [facility]-Influenza Vaccine (#1) 2025 HPV Vaccines Aged Out No longer eligi ble based on patient's age to complete this topic [facility]-HIB Vaccines Aged Out No longer e ligible based on patient's age to complete this topic [facility]-Hepatitis A Vaccines Aged Out No longer eligible based on patient's age to complete this topic [facility]-IPV Vaccines Aged Out No longer e ligible based on patient's age to complete this topic [facility]-Rotavirus Vaccines Aged Out No lo nger eligible based on patient's age to complete this topic Insurance [employer]
[2025-04-21 08:17] LABS: Hepatitis B Surface Antigen Negative (Negative)
== END 2025-04-19 23:59 | disposition home or self-care (01) ==
LOC: LAB.DROPOF 04-20 11:32
PROVIDERS: PCP Family Medicine; Visit Provider Family Medicine
DX: Z11.4 Encounter for screening for human immunodeficiency virus [HIV] (principal); Z12.5 Encounter for screening for malignant neoplasm of prostate; Z11.59 Encounter for screening for other viral diseases; I10 Essential (primary) hypertension; E03.9 Hypothyroidism, unspecified
CPT/HCPCS: 80053; 80061; 84443; 85025; 86803; 87340; 87389; G0103